=== PATIENT | female | born 1970 | race Caucasian/White ===

== ENCOUNTER 2016-08-14 20:27 | Emergency (ER) | payer MEDICAID ==
[~2016-08-14] VITALS: Ht 165.1 cm; Wt 84.1 kg
[~2016-08-14 20:27] MED LIST: CARI350T14 PO; CELE200C PO; DULO30CA2 PO; HYDR-3144 PO; HYDR12.58 PO; INHALER INH; LISI40TA PO; LOVENOX SC; MULT-516 PO; WARF4TAB7 PO
[2016-08-14 20:30] VITALS: BP 121/74
[2016-08-14] MEDS ORDERED: CARI350T14 PO (20:53)
[2016-08-14] MEDS ORDERED: FAMOTIDINE 20 MG TABLET ONE (20:56)
[2016-08-14] MEDS ORDERED: FAMOTIDINE 20 MG TABLET PO ONE (21:00)
== END 2016-08-14 21:37 | disposition home or self-care (01) ==
LOC: ED 21:18
DX: L50.9 Urticaria, unspecified (principal); J45.909 Unspecified asthma, uncomplicated; I10 Essential (primary) hypertension; G43.909 Migraine, unspecified, not intractable, without status migrainosus
CPT/HCPCS: 99284; J7512; Q0177